=== PATIENT | female | born 2000 | race Caucasian/White ===

== ENCOUNTER 2023-10-23 08:27 | Outpatient (AMB) | payer OTHER, SELFPAY ==
--- NOTE | 2023-10-23 08:39 | MHC.PC.OV ---
Vital Signs 10/23/23 08:41 Height 5 ft 3 in Weight 130 lb 2 oz BMI 23.0 BP 110/76 Blood Pressure Location Lt brachial Position Sitting Pulse 80 Pulse Source Pulse Oximeter Pulse Oximetry (%) 99 Oxygen Delivery Method Room Air Intake Visit Reasons: Fluoxetine refill OK per AE Intake Note: Pt is here to est care Is last menstrual period known: Yes Last menstrual period: 10/02/23 Allergies No Known Allergies Allergy (Verified 10/23/23 08:56) Medication List - Last Reconciled 10/23/23 by VIKTORIYA Toscano fluoxetine 20 mg PO DAILY Tobacco use date assessed: 10/23/23 Dental Screening Dental Screen Date: 10/23/23 Did you have a dental visit in the last 12 months?: Yes Did you have a dental problem in the last 6 months where you did not have access to dental care?: No Was dental information given to patient?: Patient has dentist HPI HPI Comments History of Present Illness Details Patient is a 23-year-old female here to establish care. Patient is due for Pap smear, but would like to discuss referral at next appointment in 4 months. She has a past medical history significant for depression and anxiety, she has been taking fluoxetine 20 mg with good effect. Denies SI/HI. PFSH Family History Mother Mental health disorder Maternal Uncle Mental health disorder Paternal Grandmother Substance use disorder Maternal Grandmother Breast cancer Social History Housing: House Patient Tobacco Use Status: Never used Tobacco e-Cigarette/Vaping Use: Never Used Second Hand Smoke Exposure: No service: No Current occupational status: employed Current occupation: [employer] Current occupational exposures/hazards: No Cognitive needs: No Hearing needs: No Vision needs: No Female Reproductive History Menstrual Date of last menstrual period: 10/02/23 Questionnaire PHQ-9 Over the last 2 weeks, how often have you been bothered by any of the following problems? 1. Little interest or pleasure in doing things: not at all 2. Feeling down, depressed, or hopeless: several days 3. Trouble falling or staying asleep, or sleeping too much: more than half the days 4. Feeling tired or having little energy: more than half the days 5. Poor appetite or overeating: several days 6. Feeling bad about yourself - or that you are a failure or have let yourself or your family down: several days 7. Trouble concentrating on things, such as reading the newspaper or watching television: more than half the days 8. Moving or speaking so slowly that other people could have noticed. Or the opposite - being so fidgety or restless that you have been moving around a lot more than usual: several days 9. Thoughts that you would be better off or of hurting yourself in some way: not at all Total score: 10 Source: Developed by Drs. Jose Ramirez, Viridiana Mina, Vikram Casey and colleagues, with an educational nora from [employer]. Thrive Questionnaire Date Thrive assessed: 10/23/23 I am a: Patient What is your living situation today?: I have a steady place to live Within the past 12 months, did the food you bought not last and you didn't have the money to get more?: Never true Within the past 12 months, did you worry whether your food would run out before you got money to buy more?: Never true Do you have trouble paying for medicines?: No Do you have trouble getting transportation to medical appointments?: No Do you have trouble paying your heating and electricity bill?: No Do you have trouble taking care of your child, family member or friend?: No Do you have trouble with day-to-day activities such as bathing, preparing meals, shopping, managing finances, etc.?: No Are you currently unemployed and looking for a job?: No Are you interested in more education?: No THRIVE Score: 0 AUDIT C Alcohol Use Questionnaire (AUDIT-C) 1. How often do you have a drink containing alcohol?: Never Total Score: 0 TAMICA-7 AMB Questionnaire TAMICA-7 Date TAMICA - 7 assessed: 10/23/23 Feeling nervous, anxious, or on edge: 1 = Several days Not being able to stop or control worryin = Several days Worrying too much about different things: 2 = More than half the days Trouble relaxin = More than half the days Being so restless that it is hard to sit still: 3 = Nearly every day Becoming easily annoyed or irritable: 1 = Several days Feeling afraid as if something awful might happen: 1 = Several days Total TAMICA-7 score (0-4 normal; 5-9 mild; 10-14 moderate; 15-21 severe): 11 Source: Developed by Drs. Jose Ramirez, Viridiana Mina, Vikram Casey and colleagues, with an educational nora from [employer]. Review of Systems Const Details: Constitutional : No Weight loss, No Fever, No Chills, No Fatigue, No Malaise Cardiovascular : No Chest Pain, No SOB, No Dyspnea on Exertion, No Orthopnea, No Edema, No Palpitations Respiratory : No Cough, No Sputum, No Wheezing Neuro : No Weakness, No Numbness, No Dizziness, No Headache Psych : Admits Anxiety/Panic, Admits some Depression. Denies SI/HI. Heme/Lymph: No Bruising, No Bleeding,No Lymphadenopathy All other systems reviewed and are negative Physical exam (Primary Care) Vital Signs: Last Vital Signs Pulse 80 10/23/23 08:41 BP 110/76 10/23/23 08:41 Pulse Ox 99 10/23/23 08:41 Oxygen Delivery Method Room Air 10/23/23 08:41 Care Plan Goal for BP management: Vital signs reviewed stable. BMI result Body Mass Index 23.0 Tobacco/Smoking Status: Tobacco use Status Tobacco use date assessed 10/23/23 10/23/23 08:48 Patient Tobacco Use Status Never used Tobacco 10/23/23 08:48 e-Cigarette/Vaping Use Never Used 10/23/23 08:48 PHQ-9: PHQ-9 Score PHQ-9: Total score 10 10/23/23 08:51 Thrive Assessment: Date of Thrive Assessment Date Thrive assessed 10/23/23 10/23/23 08:51 Const Other: Appearance: Alert.? Oriented X3.? No acute distress.? Head: Normocephalic, atraumatic. ?Neck: Normal inspection.? Neck supple.? CVS: Normal heart rate and rhythm.? Pulses normal.? Respiratory: No respiratory distress.? Breath sounds normal.? Skin: Skin warm and dry.? Normal skin color.? Normal skin turgor.? Neuro: Oriented X 3.? No motor deficit.? No sensory deficit. CN 2-12 intact Assessment and Plan Assessment & Plan (1) Anxiety and depression: Comment: Patient states she is due for a fluoxetine referral, ran out of medication yesterday. Will refill. Patient has been educated on the side effects of the medication Code(s): F41.9 - Anxiety disorder, unspecified; F32.A - Depression, unspecified Plan: Take your medications as prescribed. If you were prescribed antibiotics today, it is important that you take your medication to their entirety, do not skip any doses, do not finish them early. Follow-up with your primary care provider this week. Return to the emergency department with new or worsening symptoms. Such as fevers, chills, chest pain, shortness of breath, nausea, vomiting, dizziness, headache, vision changes, lethargy In case of emergency call 911 Plan Will follow-up with physical in 4 months Orders: Orders Complete Blood Count Auto Diff Today Z13.0 - Encounter for screening for diseases of the blood and blood-forming organs and certain disorders involving the immune mechanism Comprehensive Met. Panel Today F32.A - Depression, unspecified, F41.9 - Anxiety disorder, unspecified Vitamin D 25-OH (D2 and D3) Today Z13.21 - Encounter for screening for nutritional disorder UA CC w/rflx Micro + Cult Today Z13.89 - Encounter for screening for other disorder TSH reflex Free T4 Today Z13.29 - Encounter for screening for other suspected endocrine disorder Lipid Panel Today Z13.220 - Encounter for screening for lipoid disorders Medications: New fluoxetine 20 mg PO DAILY 90 tabs 0RF Review Declined Pap Smear: 10/23/23 Coding Level of Care Code New Pt Level 3 (12887) Diagnoses Anxiety and depression F41.9; F32.A Time Spent (min) 20
[2023-10-23 08:41] VITALS: BP 110/76; PULSE 80; O2SAT 99; BMI 23.0
== END 2023-10-23 09:11 | disposition home or self-care (01) ==
PROVIDERS: Visit Provider Nurse Practitioner Primary Care
DX: F41.9 Anxiety disorder, unspecified (principal); F32.A Depression, unspecified
CPT/HCPCS: 99203

== ENCOUNTER 2024-01-24 11:59 | Outpatient (REF) | payer OTHER, SELFPAY ==
[2024-01-24 13:38] LABS: MANUAL DIFF FLAG NO
[2024-01-24 13:49] LABS: Basophils Percent Auto 0.8 % (0-2); Eosinophils Absolute Auto 0.1 X10*3/uL (0.0-0.4); Eosinophils Percent Auto 2.8 % (0-4); Hematocrit 39.3 % (37.0-47.0); Hemoglobin 12.9 g/dl (12.0-16.0); Imm Gran Abs Auto 0.01 X10*3/uL (0.00-0.03); Imm Gran Pct Auto 0.3 % (0.0-0.4); Lymphocytes Absolute Auto 1.9 X10*3/uL (1.2-4.9); Lymphocytes Percent Auto 52.6 % (20-40); Mean Corpuscular HGB Conc 32.8 g/dl (31.0-35.0); Mean Corpuscular Volume 85.2 fL (80.0-98.0); Mean Platelet Volume 10.4 fL (9.4-12.3); Monocytes Absolute Auto 0.3 X10*3/uL (0.1-1.2); Monocytes Percent Auto 9.1 % (2-11); Neutrophils Absolute Auto 1.3 x10*3/uL (2.0-8.3); Neutrophils Percent Auto 34.4 % (45-73); Platelet Count 276 X10*3/uL (160-400); Red Blood Count 4.61 X10*6/uL (4.20-5.50); Red Cell Distribution Width 13.7 % (11.0-16.0); White Blood Count 3.6 X10*3/uL (4.8-10.8)
[2024-01-24 15:17] LABS: Alanine Aminotransferase 10 U/L (0-31); Albumin Level 4.2 g/dL (3.5-5.0); Alkaline Phosphatase 36 U/L (39-117); Anion Gap 13 (12-20); Aspartate Amino Transferase 16 U/L (5-31); Bilirubin Total 0.5 mg/dL (0.0-1.0); Blood Urea Nitrogen 10 mg/dL (9-16); Calcium 9.6 mg/dL (8.4-10.2); Carbon Dioxide 24 mmol/L (22-29); Chloride 106 mmol/L (96-108); Cholesterol 207 mg/dL (<200); Estimated Glomerular Filt Rate > 60; Glucose Random 71 mg/dL (60-115); HDL Cholesterol 54 mg/dL (>40); LDL Cholesterol Calculated 143 mg/dL (<100); Sodium 139 mmol/L (135-145); Total Protein 7.6 g/dL (6.5-8.0); Triglycerides 53 mg/dL (<150)
[2024-01-24 15:24] LABS: TSH reflex Free T4 2.45 uIU/mL (0.32-4.0)
[2024-01-24 17:05] LABS: Appearance Urine Cloudy; Color Urine Yellow; Glucose Urine UA Negative (Negative); Leukocyte Esterase Urine Trace (Negative); Nitrite Urine Negative (Negative); PH >= 9.0 (5.0-9.0); Specific Gravity - Urine 1.025 (1.005-1.025); UMIC TRIGGER UACC YES; Urine Blood Negative (Negative); Urine Ketones Trace mg/dL (Negative); Urine Protein Trace mg/dL (Neg-Trace)
[2024-01-24 17:25] LABS: Bacteria Urine 1+ (None Seen); Hyaline Casts Urine 0-2 /LPF (0-2); RBC Urine 0-2 /HPF (0-2); WBC Urine 0-5 /HPF (0-5)
[2024-01-29 15:08] LABS: Vitamin D 25-OH, D2 <4 ng/mL; Vitamin D 25-OH, D3 24 ng/mL; Vitamin D 25-OH, Total 24 ng/mL (30-100)
== END 2024-01-24 12:00 | disposition home or self-care (01) ==
LOC: HO.HMGCLDS 11:59
PROVIDERS: PCP Nurse Practitioner Primary Care; Visit Provider Nurse Practitioner Primary Care
DX: F41.9 Anxiety disorder, unspecified (principal); F32.A Depression, unspecified; Z13.220 Encounter for screening for lipoid disorders; Z13.0 Encounter for screening for diseases of the blood and blood-forming organs and certain disorders involving the immune mechanism; Z13.21 Encounter for screening for nutritional disorder; Z13.29 Encounter for screening for other suspected endocrine disorder
CPT/HCPCS: 36415; 80053; 80061; 81001; 81003; 82306; 84443; 85025

== ENCOUNTER 2024-02-23 15:24 | Outpatient (AMB) | payer OTHER, SELFPAY ==
--- NOTE | 2024-02-23 15:25 | MHC.PC.OV ---
Vital Signs 02/23/24 15:28 Height 5 ft 3 in Weight 130 lb BMI 23.0 BP 104/66 Blood Pressure Location Rt brachial Position Sitting Pulse 72 Pulse Source Pulse Oximeter Pulse Oximetry (%) 98 Oxygen Delivery Method Room Air Intake Visit Reasons: Annual PE Intake Note: pt is here for annual PE. Pt declined Pap 09/2023 Allergies No Known Allergies Allergy (Verified 02/23/24 15:43) Medication List - Last Reconciled 02/23/24 by VIKTORIYA Toscano fluoxetine 20 mg PO DAILY Tobacco use date assessed: 02/23/24 Dental Screening Dental Screen Date: 02/23/24 Did you have a dental visit in the last 12 months?: Yes Did you have a dental problem in the last 6 months where you did not have access to dental care?: No Was dental information given to patient?: Patient has dentist HPI HPI Comments History of Present Illness Details Patient is a 23 year old female in for a physical exam. Patient is due for TDAP. She is declining at this time. Patient is due for pap-smear. Will refer. Patient is also interested in contraceptive counseling and available options. Patient has a past medical history significant for: Anxiety-currently utilizing fluoxetine 20 mg daily. Patient would also like to establish care with therapy. Will meet with community mental health navigator to establish care with therapist patient denies SI/HI. PFSH Surgical History No pertinent past surgical history Family History Mother Mental health disorder Maternal Uncle Mental health disorder Paternal Grandmother Substance use disorder Maternal Grandmother Breast cancer Social History Housing: House Patient Tobacco Use Status: Never used Tobacco e-Cigarette/Vaping Use: Never Used Second Hand Smoke Exposure: No service: No Current occupational status: employed Current occupation: [employer] Current occupational exposures/hazards: No Cognitive needs: No Hearing needs: No Vision needs: No Questionnaire PHQ-9 Over the last 2 weeks, how often have you been bothered by any of the following problems? 1. Little interest or pleasure in doing things: not at all 2. Feeling down, depressed, or hopeless: not at all 3. Trouble falling or staying asleep, or sleeping too much: not at all 4. Feeling tired or having little energy: not at all 5. Poor appetite or overeating: not at all 6. Feeling bad about yourself - or that you are a failure or have let yourself or your family down: not at all 7. Trouble concentrating on things, such as reading the newspaper or watching television: not at all 8. Moving or speaking so slowly that other people could have noticed. Or the opposite - being so fidgety or restless that you have been moving around a lot more than usual: not at all 9. Thoughts that you would be better off or of hurting yourself in some way: not at all Total score: 0 Depression Screening Interpretation: Negative Depression Screening Done: Yes 83115 - PHQ-9 Billing: Yes Source: Developed by Drs. Jose Ramirez, Viridiana Mina, Vikram Casey and colleagues, with an educational nora from [employer]. Thrive Questionnaire Date Thrive assessed: 10/23/23 AUDIT C Alcohol Use Questionnaire (AUDIT-C) 1. How often do you have a drink containing alcohol?: Never 3. How often do you have six or more drinks on one occasion?: Never Total Score: 0 Score Reviewed/Action Taken: No TAMICA-7 AMB Questionnaire TAMICA-7 Date TAMICA - 7 assessed: 02/23/24 Feeling nervous, anxious, or on edge: 0 = Not at all Not being able to stop or control worryin = Not at all Worrying too much about different things: 0 = Not at all Trouble relaxin = Not at all Being so restless that it is hard to sit still: 0 = Not at all Becoming easily annoyed or irritable: 0 = Not at all Feeling afraid as if something awful might happen: 0 = Not at all Total TAMICA-7 score (0-4 normal; 5-9 mild; 10-14 moderate; 15-21 severe): 0 Source: Developed by Drs. Jose Ramirez, Viridiana Mina, Vikram Casey and colleagues, with an educational nora from [employer]. TAMICA-7 Assessment Billing ATMICA-7 Assessment Tool: TAMICA-7 Assessment 45715 (Patient meeting with community mental health navigator for therapy establishment) Review of Systems Const All systems reviewed & are unremarkable except as noted in HPI and below Physical exam (Primary Care) Vital Signs: Last Vital Signs Pulse 72 02/23/24 15:28 BP 104/66 02/23/24 15:28 Pulse Ox 98 02/23/24 15:28 Oxygen Delivery Method Room Air 02/23/24 15:28 Care Plan Goal for BP management: Patient's blood pressure is controlled. BMI result Body Mass Index 23.0 Tobacco/Smoking Status: Tobacco use Status Tobacco use date assessed 02/23/24 02/23/24 15:36 Patient Tobacco Use Status Never used Tobacco 02/23/24 15:26 e-Cigarette/Vaping Use Never Used 02/23/24 15:26 PHQ-9: PHQ-9 Score PHQ-9: Total score 0 02/23/24 15:36 Depression Screening Interpretation: Negative Thrive Assessment: Date of Thrive Assessment Date Thrive assessed 10/23/23 02/23/24 15:26 Const Other: Appearance: Alert.? Oriented X3.? No acute distress.? Head: Normocephalic, Eyes: Pupils equal, round and reactive to light.? ENT: Pharynx normal.?TM intact and pearly morgan bilaterally. Neck: Normal inspection.? Neck supple.? CVS: Normal heart rate and rhythm.? Pulses normal.?+Systolic murmur. Respiratory: No respiratory distress.? Breath sounds normal.? Abdomen: Soft and nontender.? Skin: Skin warm and dry.? Normal skin color.? Normal skin turgor.? Extremities: No lower extremity edema.? No calf ttp. 5/5 strength to bilateral upper and lower extremities Back: No midline tenderness, no C-spine tenderness, full range of motion, no CVA tenderness bilaterally Neuro: Oriented X 3.? No motor deficit.? No sensory deficit. CN 2-12 intact Results Reviewed Results Reviewed: Sodium 139 135-145 mmol/L Potassium 4.0 3.3-5.1 mmol/L CL 106 96-108 mmol/L CO2 24 22-29 mmol/L Gap 13 12-20 BUN 10 9-16 mg/dL Creat 0.82 0.5-1.4 mg/dL EGFR > 60 NOTE: For -[place] individuals, multiply the result by 1.210. Chronic Kidney Disease: Estimated GFR < 60 mL/min/1.73m2 Severe Kidney Disease: Estimated GFR < 15 mL/min/1.73m2 Glucose, Random 71 60-115 mg/dL CA 9.6 8.4-10.2 mg/dL Total Bili 0.5 0.0-1.0 mg/dL AST (GOT) 16 5-31 U/L ALT (GPT) 10 0-31 U/L Protein, Total 7.6 6.5-8.0 g/dL Alb 4.2 3.5-5.0 g/dL Triglyceride 53 <150 mg/dL Desirable Triglyceride: less than 150 mg/dL Borderline High Triglyceride 150-199 mg/dL High Triglyceride: 200-499 mg/dL Very High Triglyceride: greater than or equal to 5OO mg/dL Cholesterol 207 H <200 mg/dL Desirable Cholesterol: less than 200 mg/dL Borderline High Cholesterol: 200-239 mg/dL High Cholesterol: greater than 239 mg/dL LDL Calculated 143 H <100 mg/dL Desirable LDL: less than 100 mg/dL Near Optimal/Above Optimal LDL: 110-129 mg/dL Borderline High LDL: 130-159 mg/dL High LDL: 160-189 mg/dL Very High LDL: greater than or equal to 190 mg/dL HDL 54 >40 mg/dL Desirable HDL: greater than 40 mg/dL Note: This HDL assay may give artificially low results in patients with liver disease. Alk Phos 36 L 39-117 U/L TSH 2.45 0.32-4.0 uIU/mL Assessment and Plan Assessment & Plan (1) Physical exam: Comment: Patient is due for TDAP. She is declining at this time. Patient is due for pap-smear. Will refer. Patient is also interested in contraceptive counseling and available options. Patient has a past medical history significant for: Anxiety-currently utilizing fluoxetine 20 mg daily. Patient would also like to establish care with therapy. Will meet with community mental health navigator to establish care with therapist patient denies SI/HI. Code(s): Z00.00 - Encounter for general adult medical examination without abnormal findings (2) Anxiety and depression: Comment: Utilizing fluoxetine 20 mg p.o. daily. Patient will meet with navigated to establish therapist. Code(s): F41.9 - Anxiety disorder, unspecified; F32.A - Depression, unspecified (3) Vitamin D deficiency: Comment: Utilizing 2000 units vitamin D3 daily. Will redraw and for 5 months Code(s): E55.9 - Vitamin D deficiency, unspecified (4) Hyperlipidemia: Comment: Patient will try to control this with improved diet and exercise. Code(s): E78.5 - Hyperlipidemia, unspecified Qualifiers: Hyperlipidemia type: unspecified Qualified Code(s): E78.5 - Hyperlipidemia, unspecified Plan: follow up in 10 months. Orders: Referrals PLANNING MANAGEMENT IT SPECIALIST Referral Z30.09 - Encounter for other general counseling and advice on contraception Coding Level of Care Code Est Pt Level 3 (36773) Diagnoses Physical exam Z00.00 Anxiety and depression F41.9; F32.A Vitamin D deficiency E55.9 Hyperlipidemia, unspecified hyperlipidemia type E78.5 Hyperlipidemia type: unspecified Additional Codes TAMICA-7 Assessment Billing - TAMICA-7 Assessment Tool: TAMICA-7 Assessment [id number] ([id number])
[2024-02-23 15:28] VITALS: BP 104/66; PULSE 72; O2SAT 98; BMI 23.0
== END 2024-02-23 16:07 | disposition home or self-care (01) ==
PROVIDERS: PCP Nurse Practitioner Primary Care; Visit Provider Nurse Practitioner Primary Care
DX: Z00.00 Encounter for general adult medical examination without abnormal findings (principal); F41.9 Anxiety disorder, unspecified; F32.A Depression, unspecified; E55.9 Vitamin D deficiency, unspecified; E78.5 Hyperlipidemia, unspecified
CPT/HCPCS: 99395

== ENCOUNTER 2024-07-19 10:34 | Outpatient (AMB) | payer OTHER, SELFPAY ==
--- NOTE | 2024-07-19 10:47 | MHC.OFFVIS ---
Vital Signs 07/19/24 10:52 Height 5 ft 3 in Weight 136 lb BMI 24.1 BP 116/68 Intake Visit Reasons: BC consult Health Spa Manager Required: No Information Interpreted: clinical only Supplier Quality Specialist: Supplier Quality Specialist Present Allergies No Known Allergies Allergy (Verified 07/19/24 10:53) Medication List - Last Reconciled 07/19/24 by Pilar Plunkett CNM fluoxetine 20 mg PO DAILY Is last menstrual period known: Yes Last menstrual period: 07/05/24 HPI HPI BC consult: Details: Patient is here could she the about all the different methods of control she is considering getting on control both for control because she might become sexually active with her boyfriend when he comes to visit and also for her serious cramps heavy periods she had to call out of work with her last period on the 2nd day of the cramps were so heavy. [facility] Surgical History No pertinent past surgical history Family History Mother Mental health disorder Maternal Uncle Mental health disorder Paternal Grandmother Substance use disorder Maternal Grandmother Breast cancer Social History Housing: House Patient Tobacco Use Status: Never used Tobacco e-Cigarette/Vaping Use: Never Used Second Hand Smoke Exposure: No service: No Current occupational status: employed Current occupation: [email or web address] Current occupational exposures/hazards: No Cognitive needs: No Hearing needs: No Vision needs: No Female Reproductive History Menstrual Age of Menarche: 14 Duration of menses: 3-5 days Date of last menstrual period: 07/05/24 control method: none Total pregnancies: 0 History of abnormal pap smear: No (no previous pap) Physical Exam Vital Signs: Last Vital Signs BP 116/68 07/19/24 10:52 BMI result Body Mass Index 24.1 Assessment & Plan Assessment & Plan (1) Anxiety and depression: Comment: Utilizing fluoxetine 20 mg p.o. daily. Patient will meet with navigated to establish therapist. Code(s): F41.9 - Anxiety disorder, unspecified; F32.A - Depression, unspecified Category: Medical (2) control counseling: Code(s): Z30.09 - Encounter for other general counseling and advice on contraception Category: Medical (3) BCP ( control pills) initiation: Code(s): Z30.011 - Encounter for initial prescription of contraceptive pills Category: Medical (4) Primary dysmenorrhea: Code(s): N94.4 - Primary dysmenorrhea Category: Medical Plan -I reviewed with the patient, all of the currently common used methods of control that are available. We reviewed how they work in the body, how they are taken, common side effects, uncommon side effects, precautions, and contraindications. -Discussed also factors that influence their effectiveness and use, and womens satisfaction with the method. -Discussed how each are used, and drawbacks of each method as well. -Methods covered included: condoms, control pills, control patches, control rings, Depo-Provera, Nexplanon, Mirena and Kyleena IUDs, and ParaGard IUDs. All of the above methods were covered in great detail including their side effect profiles and common experiences that women have and ways to mitigate against the negative experiences including attention to diet and exercise patient's with bleeding challenges that may occur her and efforts to time the initiation of the method to this start of the menstrual period. Detail how to start the pills to take them how to keep herself straight pill pack what to do with the miss pill all potential side effects danger signs go from 1 pack to the next expected side effects when to take it how to remember to take it. We will see her in 3 months for her 1st annual exam and Pap smear she is currently virginal but she is contemplating becoming sexually active around August when her boyfriend comes to visit. 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 Also discussed other ways to manage menstrual cramps including heat and ibuprofen. Medications: New desog-e.estradiol/e.estradiol 0.15-0.02 mgx21 /0.01 mg x 5 1 tab PO DAILY 84 tabs 4RF Coding Level of Care Code New Pt Level 3 (60786) Diagnoses Anxiety and depression F41.9; F32.A control counseling Z30. BCP ( control pills) initiation Z30.011 Primary dysmenorrhea N94.4
[2024-07-19 10:52] VITALS: BP 116/68; BMI 24.1
== END 2024-07-19 11:38 | disposition home or self-care (01) ==
PROVIDERS: PCP Nurse Practitioner Primary Care; Visit Provider Advanced Practice Midwife
DX: F41.9 Anxiety disorder, unspecified (principal); F32.A Depression, unspecified; Z30.09 Encounter for other general counseling and advice on contraception; Z30.011 Encounter for initial prescription of contraceptive pills; N94.4 Primary dysmenorrhea
CPT/HCPCS: 99203

== ENCOUNTER 2024-10-18 10:50 | Outpatient (AMB) | payer OTHER, SELFPAY ==
[2024-10-18 10:57] VITALS: BP 110/62; BMI 23.9
--- NOTE | 2024-10-18 10:57 | MHC.OFFVIS ---
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 She started on OCPs mainly to help her with the severe cramps she I identifies as being on the spectrum and because of her cramps she says that they provide a worse sensory experience for her but her periods are much better now on the pills and she is getting regular periods in her shorter and they do not hurt as much. She has not fully been sexually active yet in the [facility] and her long distance boyfriend lives in [place] have attempted sexual intimacy but tried finger penetration did not get very far and other sexual contact was orally and more external. She does not know if she will be able to have the exam today she is extremely tense she brought a stuffed animal object to squeeze which she is clutching. Her mother is outside and she may want her mother to join as well. She wishes to try to have the speculum exam though she is wondering what other tools can be used and she wishes to try since she is here. 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 She has not met her new primary care provider yet it will be sometime this summer and she says she does have a therapist. She did not get the HPV vaccine. [facility]LY [facility], [facility] Surgical History No pertinent past surgical history Family History Mother Mental health disorder Maternal Uncle Mental health disorder Paternal Grandmother Substance use disorder Maternal Grandmother Breast cancer Social History Housing: House Patient Tobacco Use Status: Never used Tobacco e-Cigarette/Vaping Use: Never Used Second Hand Smoke Exposure: No service: No Current occupational status: employed Current occupation: [employer] Current occupational exposures/hazards: No Cognitive needs: No Hearing needs: No Vision needs: No Female Reproductive History Menstrual Age of Menarche: 14 Duration of menses: 3-5 days Date of last menstrual period: 09/24/24 control method: pills Total pregnancies: 0 History of abnormal pap smear: No (no previous pap) Physical Exam Vital Signs: Last Vital Signs BP 110/62 10/18/24 10:57 BMI result Body Mass Index 23.9 Const General: healthy appearing, comfortable, no acute distress, well developed and alert Nutritional Appearance: average body habitus Orientation/consciousness: patient oriented x3 Limitations: no limitations HEENT Head: Yes normocephalic Neck Neck: Yes normal visual inspection Thyroid: Thyroid normal Chest Chest palpation & inspection: normal inspection of the chest Breast/axilla inspection: normal inspection of the breasts and normal inspection of the axillae Breast/axilla palpation: normal palpation of the breasts and normal palpation of the axillae Resp Effort & Inspection: normal respiratory effort GI Inspection: Yes normal to inspection, No Abdominal wall edema and No distended Palpation (GI): Soft to palpation and nontender Other: Patient invited her mother in to hold her hand which she clenched during attempt at a pelvic exam. Patient able to tolerate external touching but clenched tight and Kegel's and said she would not be able to go further with anything with the introduction of the speculum. Offered to have the patient try to hold the speculum as well as myself while I guided it in but she clenched and stopped and said she would not be able to go forth with that as well. External exam was completely within normal limits with normal landmarks and healthy mucosa.. External Female Exam: normal external appearance and normal appearance of the urethra Neuro General: patient oriented x3 Assessment & Plan Assessment & Plan (1) control counseling: Code(s): Z30.09 - Encounter for other general counseling and advice on contraception Category: Medical (2) Primary dysmenorrhea: Code(s): N94.4 - Primary dysmenorrhea Category: Medical (3) Anxiety and depression: Comment: Utilizing fluoxetine 20 mg p.o. daily. Patient will meet with navigated to establish therapist. Code(s): F41.9 - Anxiety disorder, unspecified; F32.A - Depression, unspecified Category: Medical (4) Autism spectrum: Code(s): F84.0 - Autistic disorder Category: Medical (5) Cervical cancer screening: Comment: Patient was not able to allow herself to relax through a speculum exam for so the cancer screening patient did not have the HPV vaccine and declined it. Patient not currently sexually active yet. Code(s): Z12.4 - Encounter for screening for malignant neoplasm of cervix Category: Medical (6) Well woman exam (no gynecological exam): Comment: External exam done patient not able to tolerate any introduction of anything into vagina. Code(s): Z00.00 - Encounter for general adult medical examination without abnormal findings Category: Medical Plan -----Discussed in this visit the following: healthy balanced diet, regular and consistent exercise, getting recommended health screens, doing the best she can for her particular health concerns, kegel exercises, pap smear screening and followup recommendations, mammography screening and SBE, normal changes in cycles in her life stage--- . Discussed that at some point she may feel more comfortable allowing herself to have a speculum exam and Pap smear done discussed the recommendations. Discussed dust consideration of getting the HPV vaccine for future protection. She is staying today that she thinks that she probably will not ever be sexually active though she also said that she and her partner have had interest in it and have exploring but have needed to stop several times and have not progressed to any vaginal penetration. Discussed that sexual activity is a choice and she does not have to become sexually active she does not wish to. She had knowledge that there was nothing at all involuntary in any of her activity so far, and the relationship she has with her the since partner is respectful. Suggested that any activity she has or does in the future is completely her choice and if she does decide to explore forward she where to gain comfort with her own body herself 1st suggested speaking to her therapist in more detail about this as well. Suggested consideration to these pre B vaccine for future protection. She wants to continue on the control pills they are helping her with her periods and that is a good thing for her so prescription sent for 1 more year and we will see her either in 1 year to explore the possibility of a pelvic exam and Pap smear again or any time she feels courageous enough to try again. One year for 1st pelvic and Pap site leader annual and control pill review patient may elect to come s Patient could elect to come sooner for pelvic exam if she chose Medications: Refilled desog-e.estradiol/e.estradiol 0.15-0.02 mgx21 /0.01 mg x 5 1 tab PO DAILY 84 tabs 4RF Coding Level of Care Code Est Pt Prev Care 18-39y([id number]) Diagnoses control counseling Z30.09 Primary dysmenorrhea N94.4 Anxiety and depression F41.9; F32.A Autism spectrum F84.0 Cervical cancer screening Z12.4 Well woman exam (no gynecological exam) Z00.00
--- OUTSIDE RECORDS SUMMARY | 2024-10-18 11:55 | XMS_ITS | Encounter Summary ---
Author Organization [facility] Address [address] [place] [id number] Phone Care Team Providers Care Senior Technical Support Analyst Name Role Phone Latosha Michele DO Primary Care Provider [phone] Encounter Details Date Type Department Care Team (Late st Contact Info) Description 04/13/2017 Conversion Encounter [facility] [address] [place] [address] Social History Tobacco Use Types Packs/Day Years Used Date Smoking Tobacco: Never Comments:Never smoker Comments Unknown Sex and Gender Information Value Date Recorded Sex Assigned at Not on file Legal Sex Female 5:03 PM EDT Gender Identity Choose not to disclose 2 11:33 PM EDT Sexual Orientation Not on file documented as of this encounter Plan of Treatment Not on file documented as of this encounter Visit Diagnoses Not on filedocumented in this encounter Care Teams Senior Technical Support Analyst Relationship Specialty Start Date End Date Latosha Michele DO [address] [place] [address] PCP - General 04/07/17 06/27/23 documented as of this encounter
--- OUTSIDE RECORDS SUMMARY | 2024-10-18 11:55 | XMS_ITS | Encounter Summary ---
Author Organization [facility] Address [address] [place] [id number] Phone Care Team Providers Care Technical Operations Specialist Name Role Phone Latosha Michele DO Primary Care Provider [phone] Reason for Visit * Reason Onset Date Comments Med Refill 07/07/2022 Encounter Details Date Type Department Care Team (Late st Contact Info) Description 07/07/2022 Refill [facility] [address] [place] [address] Latosha Michele DO [address] [place] [address] Social anxiety disorder Social History Tobacco Use Types Packs/Day Years Used Date Smoking Tobacco: Never Smokeless Tobacco: Never Comments:Never smoker Alcohol Use Standard Drinks/Week Comments No 0 (1 standard drink = 0.6 oz pur e alcohol) Hunger/Food Answer Date Recorded In the last 12 months, did y ou or your family ever eat less than you felt you should because there wasn't enough money for food? No 05/04/2022 Stable Housing Answer Date Recorded Are you worried that in the next 2 months you may not have stable housing? No 05/04/2022 Transportation Concerns Answer Date Rec orded In the last 12 months, have you or your family ever had to go without healthcare because you didn't have a way to get there? No 05/04/2022 Hazards in Home Answer Date Recorded Think about the place you li ve. Do you have problems with any of the following? Pests (mice or roaches), mold, no/not working smoke detectors, water leaks, no window guards. No 2021 Financing Utilities Answer Date Recorde d In the last 12 months, has t he electric, gas, oil, or water company threatened to shut off your services in your home? No 05/04/2022 Safety at Home Answer Date Recorded Are you or your family worried about feeling saf e in your home? No 05/04/2022 Outside Support Answer Date Recorded Do you feel that you need mo re support from other people or programs to help you care for yourself or your family? Yes 05/04/2022 Understanding Health Concerns Answer Da te Recorded Do you need help understandi ng your or your child's healthcare needs (diagnosis, medications, plan, etc.)? No 05/04/2022 Financing Health Concerns Answer Date R ecorded In the last 12 months, was t here a time when your child needed to see a doctor or get medications or supplies but could not because of cost? No 05/04/2022 Missing School or Work Answer Date Graham rded Did you or your child miss s chool or work because of a health problem that could have been avoided? No 05/04/2022 Comments No Sex and Gender Information Value Date Recorded Sex Assigned at Not on file Legal Sex Female 5:03 PM EDT Gender Identity Choose not to disclose 11:33 PM EDT Sexual Orientation Not on file documented as of this encounter Miscellaneous Notes * Telephone Encounter - Shante Gonzalez LPN - 07/08/2022 8:11 AM EST Mychart refill request for fluoxetine 20mg Upcoming med check 08/12/22 PPP out of office documented in this encounter Plan of Treatment Not on file documented as of this encounter Visit Diagnoses Diagnosis Social anxiety disorder Social phobia documented in this encounter Care Teams Technical Operations Specialist Relationship Specialty Start Date End Date Latosha Michele DO [address] [place] [address] PCP - General 04/07/17 06/27/23 documented as of this encounter
--- OUTSIDE RECORDS SUMMARY | 2024-10-18 11:55 | XMS_ITS | Clinical Summary ---
Author Organization [facility] Address [address] [place] [phone] Phone Care Team Providers Care Muffler Tender Name Role Phone Unavailable Primary Care Provider Unavailabl e Allergies No known active allergies Medications melatonin tablet Take by mouth. 12/14/2016 Active FLUoxetine 20 MG tabletIndication s:Social anxiety disorder Take 1 tablet (20 mg total) by mouth once daily. 30 tablet 09/06/2023 Active Active Problems Problem Noted Date Diagnosed Date Influenza vaccine refused 05/12/2022 Overview (05/12/2022): Reviewed w/ pt 05/11/22 Gender dysphoria 03/15/2021 Overview (03/15/2021): Ongoing for 5 years now Parents aware Currently identifies more w/ he/him pronouns but not settled with this yet Found a campus counselor who specializes in gender counseling- will see counselor when back @ [facility] Assessment & Plan (03/15/2021 10:12 AM EDT): This is new info to me today Glad pt found a gender counselor on campus @ [facility] I offered consult w/ Gender clinic- she will think about it and can message me anytime if interested HPV vaccine counseling 03/15/2021 Overview (03/15/2021): Reviewed w/ pt- she declines for now Social anxiety disorder 09/26/2019 Overview (08/12/2022): Fluoxetine start - up to 20mg Plans to see [facility] campus counseling Sees therapist Sterling Cat-retiring I rec campus counseling- [facility] Assessment & Plan (02/22/2023 3:18 PM EDT): Patient with gender dysphoria and a increased anxiety in the context of a in the family. Patient will benefit from bridge to longer term support. Patient is ready to address anxiety. Strengths include being a strong student. PLAN: Follow up with [facility] if needed Patient goal is to identify and process stressors, and learn coping skills to address symptoms. Behavioral Recommendations: Practice coping skills when feeling calm and regulated Notice worried thoughts when they occur and call them out as thoughts c. Referral/appointment request completed for [facility] on 02/22/2023 Assessment & Plan (02/06/2023 11:44 AM EDT): Patient with gender dysphoria and a increased anxiety in the context of a in the family. Patient will benefit from bridge to longer term support. Patient is ready to address anxiety. Strengths include being a strong student. PLAN: Follow up with [facility] three weeks Patient goal is to identify and process stressors, and learn coping skills to address symptoms. Behavioral Recommendations: Practice coping skills when feeling calm and regulated Notice worried thoughts when they occur and call them out as thoughts c. Keep follow up appointment for referral Assessment & Plan (01/18/2023 8:48 AM EDT): She is having a tough week- MGF just 2w ago; they were very close She has been feeling anxious and scared since then Discussed [facility] team and brief intervention- she is interested and will book session Discussed prn hydroxyzine she could take for the next few weeks- she does not think she needs this We could also consider inc her fluoxetine dose but again- she wanted to see how counseling goes first Cont fluoxetine 20mg RTO for PE in APR/MAY Assessment & Plan (08/14/2022 8:47 AM EST): Doing well on fluoxetine 20mg Reports swallowing capsules is harder than tabs so I will call pharm and check on fluoxetine tablet insurance coverage Med check in DECEMBER Has not felt she needed to see therapist Assessment & Plan (06/10/2022 2:11 PM EDT): TAMICA much better on inc dose fluoxetine to 15mg FU in 2mo Gave info for [facility] counseling Can see [facility] too On campus counseling does not book appts in advance unfortunately Assessment & Plan (05/12/2022 7:56 AM EDT): Skinny start to fall TAMICA still pos Inc dose fluoxetine to 20mg Med check in a month To see [facility] campus counseling- encouraged to call and book now rather than later as she is pretty stressed Assessment & Plan (04/01/2022 11:55 AM EDT): After counseling the patient/family on risks and benefits of SSRIs, we will start prozac at a trial dose of 5mg/day for a week, then I will have them called by [facility] nurse in a week, and if they are tolerating the test dose well, without any significant side effects, we will double the dose to 10mg/day. The pt knows to call immediately for significant side effects, especially significant agitation or any new thoughts about self-harm. 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 Resolved Problems Problem Noted Date Diagnosed Date Resolved Date Social problem 12/26/2017 03/15/2021 Overview (03/02/2020): Had school eval DECEMBER 2017 but no testing for ASD which parents wanted; would need outside eval- teen is resistant to this idea School problem 12/26/2017 03/15/2021 Overview (02/20/2019): Parents req CORE eval 2017- has 504 plan now Does well academically Assessment & Plan (02/20/2019 10:46 AM EDT): Asked mom to bring in copy of school psych eval Assessment & Plan (12/26/2017 7:26 AM EDT): Teen has struggled socially for a long time- parents ?spectrum dx and I agree with their concerns and after a long 1:1 convo with pt today alone; hoping to get CORE eval by next schoolyear. Qdab-nx-rgmo spots 09/04/2009 0 Innocent heart murmur 09/04/20092019 Immunizations Immunization Administration Dates Next Due DTaP 5 07/12/2006, 4,2002,10/07,2002 Hep A, ped/adol 04/16/2014,09/11/2013 Hep B, ped/adol 03/19/2003,2002,2002 Hib (PRP-T) 09/05/2003, 3,2002,08/05 IPV 07/12/2006, 3,2002,08/05 Influenza Split 06/13/2012,06/15/2011,06/09/2010 Influenza, injectable, quadr ivalent, preservative free 09/29/2017,06/02/2014,06/12/2013 Influenza, injectable, trivalent 009,07/16/2008,07/16/2007,07/12 Influenza, intranasal, quadrivalent 05/23/2015 MMR 06/23/2003 MMRV 07/12/2006 Meningococcal B Trumenba 01/18/2023,04/01/2022 Meningococcal Conj (Menactra) MCV4P 02/20/2019,0 09/11/2013 Pneumococcal Conjugate 09/05/2003,2002,2002,08/05 Tdap 09/11/2013 Varicella 06/23/2003 Family History Medical History Relation Name Comments Anxiety disorder Father Seven Causey Depression Father Seven Causey Hyperlipidemia Father Seven Causey Colon cancer Maternal Grandfather Heart disease Maternal Grandfather Breast cancer Maternal Grandmother Skin cancer Maternal Grandmother Hyperlipidemia Mother Tiffanie Causey Migraines Mother Tiffanie Causey Breast cancer Mother's Sister Brain Aneurysm Paternal Grandfather Hyperlipidemia Paternal Grandmother Anxiety disorder Sister 1 Cece Causey Depression Sister 1 Cece Causey Asthma Sister 2 Latanya Causey Relation Name Status Comments Cousin Alive cousin: Seizure disorder Father Seven Causey Alive Father: Glaucom a, High Cholesterol Maternal Grandfather Alive Materna l grandfather: Heart disease Maternal Grandmother Alive Materna l grandmother: Cancer, breast, Cancer, skin Mother Tiffanie Causey Alive Mother: Alive a nd well Mother's Sister Other Family history of Colitis, Family history of Migraines, Family history of Elevated cholesterol, Family history of Diabetes mellitus, Family history of Sudden /PR under age 55, Family history of ADD/ADHD, Family history of Obesity Paternal Grandfather Paterna l grandfather: anuerysm Paternal Grandmother Alive Paterna l grandmother: Heart disease Sister 1 Cece Causey Alive Sister: Alive a nd well, Alive and well Sister 2 Latanya Causey Alive Sister: Alive a nd well, Alive and well Social History Tobacco Use Types Packs/Day Years Used Date Smoking Tobacco: Never Smokeless Tobacco: Never Tobacco Cessation:Counseling Given: Yes Comments:Never smoker Alcohol Use Standard Drinks/Week Comments [...] PM EDT Sexual Orientation Not on file Last Filed Vital Signs Vital Sign Reading Time Taken Comments Blood Pressure 102/65 01/18/2023 8:11 AM EDT Pulse 71 01/18/2023 8:11 AM EDT Temperature 36.4 ??C (97.6 ??F) 01/18/2023 8:11 AM ED T Respiratory Rate - - Oxygen Saturation - - Inhaled Oxygen Concentration - - Weight 57.7 kg (127 lb 3.2 oz) 01/18/2023 8:11 A M EDT Height 158.1 cm (5' 2.25 ) 05/11/2022 3:01 PM ED T Body Mass Index 23.08 05/11/2022 3:01 PM EDT Plan of Treatment Health Maintenance Due Date Last Done Comments HPV Vaccines (1 - 3-dose series) 2017 DTaP,Tdap,and Td Vaccines (7 - Td or Tdap) 09/11/2023 09/11/2013, 07/12/2006, 12/26/2003, Additional history exists Influenza Vaccines (#1) 2024 09/29/19 18, 05/23/2015, 06/02/2014, Additional history exists COVID-19 Vaccine (4 - 2023-2 5 season) 2024 09/22/2021, 03/09/2021, 02/09/2021 Hepatitis B Vaccines Completed 03/19/2003, 2002, 2002 HIB Vaccines Completed 09/05/2003, 11/26, 2002, Additional history exists Pneumococcal Vaccine Completed 09/05/2003, 2002, 2002, Additional history exists IPV Vaccines Completed 07/12/2006, 02/26, 2002, Additional history exists MMR Vaccines Completed 07/12/2006, 06/23/2003 Varicella Vaccines Completed 07/12/2006, 06/23/2003 Hepatitis A Vaccines Completed 04/16/2014, 09/11/19 14 Meningococcal Vaccine Completed 02/20/2019, 014 Men B Vaccine Completed 01/18/2023, 04/01/2022 Procedures * Due to [employer] law, this organization might not be sharing sensitive test results. Procedure Name Priority Date/Time Associated Diagnosis Comments CHLAMYDIA AND GONORRHEA, AMPLIFIED Routine 05/11/2022 3:58 PM EDT Encounter for screening examination for chlamydial infection from Last 3 Months or Most Recently Relevant to Health Maintenance Results * Due to [employer] law, this organization might not be sharing sensitive test results. * Chlamydia and Gonorrhoea, Amplified (05/11/2022 3:58 PM EDT) Chlamydia Trachomatis, DNA Probe NEGATIVE (NEG) [facility] Comment: No Chlamydia Trachomatis RNA detected in this patient's sample ? (REFERENCE RANGE/NORMAL VALUE: NOT DETECTED) ? Note: This test uses instructor of nursing- mediated amplification method to detect rRNA from C. Trachomatis URINE GC AMP PROBE NEGATIVE (NEG) [facility] Comment: No Neisseria Gonorrhoeae RNA detected in this patient's sample ? (REFERENCE RANGE/NORMAL VALUE: NOT DETECTED) ? NOTE: This test uses instructor of nursing-mediated amplification method to detect rRNA from N.Gonorrhoeae. A negative result does not preclude infection. In the case of a negative urine result, testing of an endocervical(female) or urethral (male) specimen is recommended if there is high clinical suspicion of infection. Due to very high sensitivity of Nucleic Acid Amplification Test, false positive results may occur. Therefore, specimen handling is extremely important. In patients in whom the disease is unlikely, additional sample for testing should be considered after an initial positive result. The performance characteristics of this test have not been evaluated in children. The Aptima Combo2 assay is not intended for the evaluation of suspected sexual abuse or for other medico-legal indications. The ordering provider should assess if the patient had consensual sex without risk of sexual abuse. Consult the [facility] if needed. Contact phone number . Therapeutic failure or success cannot be determined with the Aptima Combo2 assay since nucleic acid may persist following appropriate antimicrobial therapy. The Centers for Disease Control and Prevention (CDC) recommends confirmatory retesting using culture or a different nucleic acid amplification test when positive results occur, if indicated. Testing performed or reported by [facility], a Service of [facility], [facility] [place] [address] Niko Gomez MD, Hemodialysis Patient Care Specialist [facility]# [id number] Urine (Urine) 05/11/2022 3:5 8 PM EDT 05/12/2022 10:58 AM EDT us Latosha Michele DO LAB MICROBIOLOGY - GENERAL ORDER DEYVI Final Result [facility] from Last 3 Months or Most Recently Relevant to Health Maintenance
--- OUTSIDE RECORDS SUMMARY | 2024-10-18 11:55 | XMS_ITS | Encounter Summary ---
Author Organization [facility] Address [address] [place] [phone] Phone Care Team Providers Care Knee Bolter Name Role Phone Latosha Michele DO Primary Care Provider [phone] Reason for Visit * Reason Comments Med Refill Encounter Details Date Type Department Care Team (Late st Contact Info) Description 09/09/2022 Refill [facility] - [address] [address] Roscoe Sheffield MD Social anxiety disorder Social History Tobacco Use [...] Telephone Encounter - Shante Gonzalez LPN - 09/09/2022 11:37 AM EST Mychart refill request for fluoxetine 20 mg Last sent on 07/08/22 Upcoming med check on 01/18/23 documented in this encounter Plan of Treatment Not on file documented as of this encounter Visit Diagnoses Diagnosis Social anxiety disorder Social phobia documented in this encounter Care Teams Knee Bolter Relationship Specialty Start Date End Date Latosha Michele DO [address] [facility] [place] [address] PCP - General 04/07/17 06/27/23 documented as of this encounter
--- OUTSIDE RECORDS SUMMARY | 2024-10-18 11:55 | XMS_ITS | Encounter Summary ---
Author Organization [facility] Address [address] [place] [id number] Phone Care Team Providers Care Plastics Scientist Name Role Phone Latosha Michele DO Primary Care Provider [phone] Reason for Visit * Reason Comments Med Change Request Encounter Details Date Type Department Care Team ([facility] st Contact Info) Description 04/23/2022 Refill [facility] [address] [place] [address] Latosha Michele DO [address] [place], [place] [id number] Social anxiety disorder Social History Tobacco Use [...] there wasn't enough money for food? No 03/15/2021 Stable Housing Answer Date Recorded Are you worried that in the next 2 months you may not have stable housing? No 03/15/2021 Transportation Concerns Answer Date Rec orded In the last 12 months, have you or your family ever had to go without healthcare because you didn't have a way to get there? No 03/15/2021 Hazards in Home Answer Date Recorded Think about the place you li ve. Do you have problems with any of the following? Pests (mice or roaches), mold, no/not working smoke detectors, water leaks, no window guards. No 2020 Financing Utilities Answer Date Recorde d In the last 12 months, has t he electric, gas, oil, or water company threatened to shut off your services in your home? No 03/15/2021 Safety at Home Answer Date Recorded Are you or your family worried about feeling saf e in your home? No 03/15/2021 Outside Support Answer Date Recorded Do you feel that you need mo re support from other people or programs to help you care for yourself or your family? No 03/15/2021 Understanding Health Concerns Answer Da te Recorded Do you need help understandi ng your or your child's healthcare needs (diagnosis, medications, plan, etc.)? No 03/15/2021 Financing Health Concerns Answer Date R ecorded In the last 12 months, was t here a time when your child needed to see a doctor or get medications or supplies but could not because of cost? No 03/15/2021 Missing School or Work Answer Date Graham rded Did you or your child miss s chool or work because of a health problem that could have been avoided? No 03/15/2021 Comments No Sex and Gender Information Value Date Recorded Sex Assigned at Not on file Legal Sex Female 5:03 PM EDT Gender Identity Choose not to disclose 11:33 PM EDT Sexual Orientation Not on file documented as of this encounter Miscellaneous Notes * Telephone Encounter - Jay Feldman LPN - 04/25/2022 12:43 PM EDT [facility] is requesting a refill on fluoxetine 10 mg. Last PE was 03/15/21 Pt has PE scheduled for 05/11/22. 90 day refill requested. documented in this encounter Plan of Treatment Not on file documented as of this encounter Visit Diagnoses Diagnosis Social anxiety disorder Social phobia documented in this encounter Care Teams Plastics Scientist Relationship Specialty Start Date End Date Latosha Michele DO [address] [facility] [place] [address] PCP - General 04/07/17 06/27/23 documented as of this encounter
--- OUTSIDE RECORDS SUMMARY | 2024-10-18 11:55 | XMS_ITS | Encounter Summary ---
Author Organization [facility] Address [address] [place] [phone] Phone Care Team Providers Care Shoe Patternmaker Name Role Phone Latosha Mihcele DO Primary Care Provider Encounter Details Date Type Department Care Team (Late st Contact Info) Description 05/05/2012 Documentation [facility] Family Medicine [address] [place] [address] Family Medicine, Physician [address] [place] [address] Social History Tobacco Use Types Packs/Day Years Used Date Smoking Tobacco: Never Assessed Comments Unknown Sex and Gender Information Value Date Recorded Sex Assigned at Not on file Legal Sex Female 5:03 PM EDT Gender Identity Choose not to disclose 2 11:33 PM EDT Sexual Orientation Not on file documented as of this encounter Plan of Treatment Not on file documented as of this encounter Visit Diagnoses Not on filedocumented in this encounter Care Teams Shoe Patternmaker Relationship Specialty Start Date End Date Latosha Michele DO [address] [place] [address] PCP - General 04/07/17 06/27/23 documented as of this encounter
== END 2024-10-18 11:36 | disposition home or self-care (01) ==
PROVIDERS: Visit Provider Advanced Practice Midwife
DX: Z01.419 Encounter for gynecological examination (general) (routine) without abnormal findings (principal)
CPT/HCPCS: 99395; 99459

== ENCOUNTER → 2024-10-18 10:50 | Outpatient (BNVA) | payer OTHER, SELFPAY | PROVIDERS: Visit Provider Advanced Practice Midwife ==

== ENCOUNTER 2024-10-25 08:32 | Outpatient (AMB) | payer OTHER, SELFPAY ==
--- NOTE | 2024-10-25 08:28 | MHC.PC.OV ---
Intake Visit Reasons: f/u depression [phone] andriod Intake Note: Pt is having a telehealth visit to f/u depression Allergies No Known Allergies Allergy (Verified 10/25/24 08:44) Medication List - Last Reconciled 10/25/24 by Yuliana Torres MD desog-e.estradiol/e.estradiol 0.15-0.02 mgx21 /0.01 mg x 5 1 tab PO DAILY fluoxetine 20 mg PO DAILY Tobacco use date assessed: 10/25/24 Dental Screening Dental Screen Date: 10/25/24 Did you have a dental visit in the last 12 months?: Yes Did you have a dental problem in the last 6 months where you did not have access to dental care?: No Was dental information given to patient?: Patient has dentist HPI f/u depression [phone] andriod HPI Details 24-year-old lady with history of dyslipidemia, vitamin-D deficiency and depression, here today via telehealth for follow-up regarding her depression with anxiety. She has been on fluoxetine 20 mg daily for several years now and feels that the medicine is not as effective in controlling her depression and has been getting more frequent anxiety attacks lately. Currently being seen by her therapist at [facility], [place] , and has an appointment already scheduled next week to see a med prescriber. [facility] Medical History Dyslipidemia Anxiety and depression Primary dysmenorrhea Autism spectrum Uses control Surgical History No pertinent past surgical history Family History Mother Mental health disorder Maternal Uncle Mental health disorder Paternal Grandmother Substance use disorder Maternal Grandmother Breast cancer Social History Housing: House Patient Tobacco Use Status: Never used Tobacco e-Cigarette/Vaping Use: Never Used Second Hand Smoke Exposure: No service: No Current occupational status: employed Current occupation: [employer] Current occupational exposures/hazards: No Cognitive needs: No Hearing needs: No Vision needs: No Female Reproductive History Menstrual Age of Menarche: 14 Other: Sees [facility] Questionnaire PHQ-9 Over the last 2 weeks, how often have you been bothered by any of the following problems? 1. Little interest or pleasure in doing things: several days 2. Feeling down, depressed, or hopeless: several days 3. Trouble falling or staying asleep, or sleeping too much: several days 4. Feeling tired or having little energy: several days 5. Poor appetite or overeating: not at all 6. Feeling bad about yourself - or that you are a failure or have let yourself or your family down: more than half the days 7. Trouble concentrating on things, such as reading the newspaper or watching television: more than half the days 8. Moving or speaking so slowly that other people could have noticed. Or the opposite - being so fidgety or restless that you have been moving around a lot more than usual: not at all 9. Thoughts that you would be better off or of hurting yourself in some way: not at all Total score: 8 Depression Screening Interpretation: Positive (Sees therapist at [facility], appointment with med prescribed by next week) Depression Screening Follow-up: Existing condition, In treatment and Community Mental Health Worker F/U Depression Screening Done: Yes Source: Developed by Drs. Jose Ramirez, Viridiana Mina, Vikram Casey and colleagues, with an educational nora from [employer]. Thrive Questionnaire Date Thrive assessed: 10/25/24 I am a: Patient What is your living situation today?: I have a steady place to live Within the past 12 months, did the food you bought not last and you didn't have the money to get more?: Never true Within the past 12 months, did you worry whether your food would run out before you got money to buy more?: Never true Do you have trouble paying for medicines?: No Do you have trouble getting transportation to medical appointments?: No Do you have trouble paying your heating and electricity bill?: No Do you have trouble taking care of your child, family member or friend?: No Do you have trouble with day-to-day activities such as bathing, preparing meals, shopping, managing finances, etc.?: No Are you currently unemployed and looking for a job?: No Are you interested in more education?: No THRIVE Score: 0 AUDIT C Alcohol Use Questionnaire (AUDIT-C) 1. How often do you have a drink containing alcohol?: Never Total Score: 0 TAMICA-7 AMB Questionnaire TAMICA-7 Date TAMICA - 7 assessed: 10/25/24 Feeling nervous, anxious, or on edge: 1 = Several days Not being able to stop or control worryin = Several days Worrying too much about different things: 1 = Several days Trouble relaxin = Not at all Being so restless that it is hard to sit still: 2 = More than half the days Becoming easily annoyed or irritable: 0 = Not at all Feeling afraid as if something awful might happen: 2 = More than half the days Total TAMICA-7 score (0-4 normal; 5-9 mild; 10-14 moderate; 15-21 severe): 7 Source: Developed by Drs. Jose Ramirez, Viridiana Mina, Vikram Casey and colleagues, with an educational nora from [employer]. TAMICA-7 Assessment Billing TAMICA-7 Assessment Tool: TAMICA-7 Assessment 58236 (Sees therapist at [facility] and has a med prescribe her appointment next week) Review of Systems Const Reports no additional complaints ENT Reports no additional complaints Card Denies chest pain, Denies irregular heart rhythm, Denies lightheadedness and Denies palpitations Resp Reports no additional complaints GI Denies abdominal pain, Denies change in bowel habits and Denies heartburn Reports no additional complaints Musc Reports no additional complaints Neuro Reports no additional complaints Psych Reports as per HPI Endo Denies palpitations Physical exam (Primary Care) Tobacco/Smoking Status: Tobacco use Status Tobacco use date assessed 10/25/24 10/25/24 08:28 Patient Tobacco Use Status Never used Tobacco 10/25/24 08:28 e-Cigarette/Vaping Use Never Used 10/25/24 08:28 PHQ-9: PHQ-9 Score PHQ-9: Total score 8 10/25/24 08:32 Depression Screening Interpretation: Positive (Sees therapist at [facility], appointment with med prescribed by next week) Depression Screening Follow-up: Existing condition, In treatment and Community Mental Health Worker F/U Thrive Assessment: Date of Thrive Assessment Date Thrive assessed 10/25/24 10/25/24 08:32 Telehealth Telehealth Telehealth Platform: [facility] Location of provider rendering services: practice address Location of patient: address on file Patient Identification confirmed using: Name, : Yes Telehealth method: video Patient verbally consented to treatment: Yes Patient verbally consented to billing insurance company: Yes Patient informed of any privacy concerns related to visit: Yes Minutes spent on Phone/Video with Pt.: 15 Coding Level of Care Code Tele Est Pt Level 3 (89385) Diagnoses Anxiety and depression F41.9; F32.A Primary dysmenorrhea N94.4 Vitamin D deficiency E55.9 Dyslipidemia E78.5 Additional Codes TAMICA-7 Assessment Billing - TAMICA-7 Assessment Tool: TAMICA-7 Assessment 18166 ([id number]) Assessment & Plan Assessment & Plan (1) Anxiety and depression: Comment: Utilizing fluoxetine 20 mg p.o. daily. Patient will meet with navigated to establish therapist. Code(s): F41.9 - Anxiety disorder, unspecified; F32.A - Depression, unspecified Category: Medical Plan: Patient opts to continue with her fluoxetine dose at 20 mg daily, has a prescription that is ready for refill at her pharmacy. Does not want to start any new medications at present time, she does have an appointment to see a med prescriber already next week at [facility] and is currently being seen by a therapist regularly. (2) Primary dysmenorrhea: Code(s): N94.4 - Primary dysmenorrhea Category: Medical Plan: Currently on control pills, followed by OBGYN (3) Vitamin D deficiency: Comment: Utilizing 2000 units vitamin D3 daily. Will redraw and for 5 months Code(s): E55.9 - Vitamin D deficiency, unspecified Category: Medical Plan: Repeat vitamin-D level ordered (4) Dyslipidemia: Code(s): E78.5 - Hyperlipidemia, unspecified Category: Medical Plan: Will recheck another fasting lipid panel, [place] [address]. Adherence to healthy eating habits and getting regular exercise advised Orders: Orders Lipid Panel 03/21/25 E78.5 - Hyperlipidemia, unspecified, Z78.9 - Other specified health status Alanine Aminotransferase 03/21/25 E78.5 - Hyperlipidemia, unspecified, Z78.9 - Other specified health status Aspartate Amino Transferase 03/21/25 E78.5 - Hyperlipidemia, unspecified, Z78.9 - Other specified health status Basic Metabolic Panel Fasting 03/21/25 E78.5 - Hyperlipidemia, unspecified, Z78.9 - Other specified health status Vitamin D 25-OH Total 03/21/25 E78.5 - Hyperlipidemia, unspecified, Z78.9 - Other specified health status
--- OUTSIDE RECORDS SUMMARY | 2024-10-25 08:44 | XMS_ITS | Encounter Summary ---
Author Organization [facility] Address [address] [place] [address] Phone Care Team Providers Care Senior Salesforce Developer Name Role Phone Latosha Michele DO Primary Care Provider [phone] Encounter Details Date Type Department Care Team (Late st Contact Info) Description 04/13/2017 Conversion Encounter [facility] [address] [place] [address] Social History Tobacco Use Types Packs/Day Years [...] filedocumented in this encounter Care Teams Senior Salesforce Developer Relationship Specialty Start Date End Date Latosha Michele DO [address] [place] [address] PCP - General 04/07/17 06/27/23 documented as of this encounter
--- OUTSIDE RECORDS SUMMARY | 2024-10-25 08:44 | XMS_ITS | Encounter Summary ---
Author Organization [facility] Address [address] [place] [address] Phone Care Team Providers Care School Counsellor Name Role Phone Latosha Michele DO Primary Care Provider [phone] Reason for Visit * Reason Comments Med Refill Encounter Details Date Type Department Care Team (Late st Contact Info) Description 09/09/2022 Refill [facility] - [address] [address] Roscoe Sheffield MD Social anxiety disorder Social [...] phobia documented in this encounter Care Teams School Counsellor Relationship Specialty Start Date End Date Latosha Michele DO [address] [facility] [place] [address] PCP - General 04/07/17 06/27/23 documented as of this encounter
--- OUTSIDE RECORDS SUMMARY | 2024-10-25 08:44 | XMS_ITS | Clinical Summary ---
Author Organization [facility] Address [address] [place] [address] Phone Care Team Providers Care Agriculture Sales Account Manager Name Role Phone Unavailable Primary Care Provider [...] counseling- will see counselor when back @ [facility] Assessment & Plan (03/15/2021 10:12 AM EDT): This is new info to me today Glad pt found a gender counselor on campus @ [facility] I offered consult w/ Gender clinic- she will think about it and can message me anytime if interested HPV vaccine counseling 03/15/2021 Overview (03/15/2021): Reviewed w/ pt- she declines for now Social anxiety disorder 09/26/2019 Overview (08/12/2022): Fluoxetine start - up to 20mg Plans to see [facility] campus counseling Sees therapist Sterling [facility]-retiring I rec campus counseling- [facility] Assessment & Plan (02/22/2023 3:18 PM EDT): Patient with gender dysphoria and a increased anxiety in the context of a in the family. Patient will benefit from bridge to longer term support. Patient is ready to address anxiety. Strengths include being a strong student. PLAN: Follow up with [facility] if needed Patient goal is to identify [...] a strong student. PLAN: Follow up with [facility] three weeks Patient goal is to identify [...] Med check in a month To see [facility] campus counseling- encouraged to call and book now rather than later as she is pretty stressed Assessment & Plan (04/01/2022 11:55 AM EDT): After counseling the patient/family on risks and benefits of SSRIs, we will start prozac at a trial dose of 5mg/day for a week, then I will have them called by [facility] nurse in a week, and if they [...] to get CORE eval by next schoolyear. [id number] spots 09/04/2009 0 Innocent heart murmur 09/04/20092019 [...] of Diabetes mellitus, Family history of Sudden /DE under age 55, Family history of ADD/ADHD, [...] Completed 01/18/2023, 04/01/2022 Procedures * Due to [place] [employer] law, this organization might not be sharing sensitive test results. Procedure Name Priority Date/Time Associated Diagnosis Comments CHLAMYDIA AND GONORRHEA, AMPLIFIED Routine 05/11/2022 3:58 PM EDT Encounter for screening examination for chlamydial infection from Last 3 Months or Most Recently Relevant to Health Maintenance Results * Due to [place] [employer] law, this organization might not be sharing sensitive test results. * Chlamydia and Gonorrhoea, Amplified (05/11/2022 3:58 PM EDT) Chlamydia Trachomatis, DNA Probe NEGATIVE (NEG) [facility] Comment: No Chlamydia Trachomatis RNA detected in this patient's sample ? (REFERENCE RANGE/NORMAL VALUE: NOT DETECTED) ? Note: This test uses rug hooker hand- mediated amplification method to detect rRNA from C. Trachomatis URINE GC AMP PROBE NEGATIVE (NEG) [facility] Comment: No Neisseria Gonorrhoeae RNA detected in this patient's sample ? (REFERENCE RANGE/NORMAL VALUE: NOT DETECTED) ? NOTE: This test uses rug hooker hand-mediated amplification method to detect rRNA from N.Gonorrhoeae. [...] without risk of sexual abuse. Consult the [facility] if needed. Contact phone number . Therapeutic failure or success cannot be determined with the Aptima Combo2 assay since nucleic acid may persist following appropriate antimicrobial therapy. The Centers for Disease Control and Prevention (CDC) recommends confirmatory retesting using culture or a different nucleic acid amplification test when positive results occur, if indicated. Testing performed or reported by [facility], a Service of [facility], [facility] [place] [address] Niko Gomez MD, Closing Coordinator [facility]# [id number] Urine (Urine) 05/11/2022 3:5 8 PM EDT 05/12/2022 10:58 AM EDT us Latosha Michele DO LAB MICROBIOLOGY - GENERAL ORDER DEYVI Final Result [facility] from Last 3 Months or Most Recently Relevant to Health Maintenance
--- OUTSIDE RECORDS SUMMARY | 2024-10-25 08:44 | XMS_ITS | Encounter Summary ---
Author Organization [facility] Address [address] [place] [address] Phone Care Team Providers Care Yield Loss Inspector Name Role Phone Latosha Michele DO Primary Care Provider [phone] Reason for Visit * Reason Comments Med Change Request Encounter Details Date Type Department Care Team ([facility] st Contact Info) Description 04/23/2022 Refill [facility] [address] [place] [address] Latosha Michele DO [address] [place], [place] [id number] Social anxiety disorder Social History Tobacco Use [...] phobia documented in this encounter Care Teams Yield Loss Inspector Relationship Specialty Start Date End Date Latosha Michele DO [address] [facility] [place] [address] PCP - General 04/07/17 06/27/23 documented as of this encounter
--- OUTSIDE RECORDS SUMMARY | 2024-10-25 08:44 | XMS_ITS | Encounter Summary ---
Author Organization [facility] Address [address] [place] [address] Phone Care Team Providers Care Editor City Name Role Phone Latosha Michele DO Primary Care Provider [phone] Encounter Details Date Type Department Care Team (Late st Contact Info) Description 05/05/2012 Documentation [facility] Medicine [address] [place] [address] Family Medicine, Physician [address] [place] [address] Social History Tobacco Use Types Packs/Day Years [...] on filedocumented in this encounter Care Teams Editor City Relationship Specialty Start Date End Date Latosha Michele DO [address] [place] [address] PCP - General 04/07/17 06/27/23 documented as of this encounter
--- OUTSIDE RECORDS SUMMARY | 2024-10-25 08:44 | XMS_ITS | Encounter Summary ---
Author Organization [facility] Address [address] [place] [address] Phone Care Team Providers Care University Librarian Name Role Phone Latosha Michele DO Primary Care Provider [phone] Reason for Visit * Reason Onset Date Comments Med Refill 07/07/2022 Encounter Details Date Type Department Care Team (Late st Contact Info) Description 07/07/2022 Refill [facility] [address] [place] [address] Latosha Michele DO [address] [place] [address] Social anxiety disorder Social History Tobacco Use [...] phobia documented in this encounter Care Teams University Librarian Relationship Specialty Start Date End Date Latosha Michele DO [address] [facility] [address] [place] [address] PCP - General 04/07/17 06/27/23 documented as of this encounter
== END 2024-10-25 11:47 | disposition home or self-care (01) ==
PROVIDERS: PCP Internal Medicine; Visit Provider Internal Medicine
DX: F41.9 Anxiety disorder, unspecified (principal); F32.A Depression, unspecified; N94.4 Primary dysmenorrhea; E55.9 Vitamin D deficiency, unspecified; E78.5 Hyperlipidemia, unspecified

== ENCOUNTER → 2024-10-25 08:32 | Outpatient (BNVA) | payer OTHER, SELFPAY | PROVIDERS: PCP Internal Medicine; Visit Provider Internal Medicine | DX: F41.9 Anxiety disorder, unspecified (principal); F32.A Depression, unspecified; N94.4 Primary dysmenorrhea; E55.9 Vitamin D deficiency, unspecified; E78.5 Hyperlipidemia, unspecified; Z79.899 Other long term (current) drug therapy | CPT/HCPCS: 96127 ==